=== PATIENT | male | born 1970 | race Caucasian/White ===

== ENCOUNTER → 2018-11-18 06:56 | Day surgery (SDC) | payer SELFPAY ==
[~2018-11-18 06:56] MED LIST: Bacitracin OINTMENT* 0.5% 0.5 oz TUBE ONE; Buffered Lidocaine 1% SYRIN* 1 ML/SYRINGE INTRADERM ONE; Bupivacaine 0.25% SDV PF* 10 ML VIAL INJ ONE; Dexamethasone IV* 4 MG/ML 1 ML (4 MG) ONE; HYDROmorphone INJ1* 1 MG/ML SYRINGE IV PRN; Lactated Ringers 1000 ML Bag* 1,000 ML IV SCH; Lidocaine 2.5%/Prilocain 2.5%* 5 GM TUBE ONE; Methylene Blue 0.5 %* 50 MG/10 ML AMP IV ONE; Midazolam* 1 MG/ML 5 ML VIAL (5 MG) ONE; Naloxone* 0.4 MG/ML 1 ML VIAL IV PRN; Neostigmine Methylsulfate* 3 MG/3 ML SYRINGE ONE; Ondansetron INJ* 2 MG/ML VIAL IV PRN; Ondansetron INJ* 2 MG/ML VIAL ONE; Propofol* 10 MG/ML 20 ML BTL ONE; Rocuronium* 10 MG/ML VIAL ONE; ceFAZolin 2 GM in NS PREMIX(*) 2 GM/100 ML BAG IVPB ONE; fentaNYL* 50 MCG/ML 2 ML VIAL (100 MCG VIAL) ONE; hydrALAZINE IV* 20 MG/ML VIAL ONE; oxyCODONE TAB* 5 MG TAB ONE
--- NOTE | 2018-11-18 13:39 | BRIEFOPN ---
Brief Operative/Procedure Note - Operation Details Pre-Op Diagnosis: melanoma Right lower back; atypical nevus Left lower back Post-Op Diagnosis: same Procedures: wide excision melanoma Right lower back. re-excision atypical nevus Left lower back. right axillary sentinel lymph node biopsy Surgeon(s)/Proceduralists: Prabhu. Mold Mechanic: VIOLETA Damon Anesthesia: GET Estimated Blood Loss: < 50 ml; IVF: 2000 ml RL Findings: as above; lymphoscintigraphy localized sentinel node to Right axilla Specimen(s)/Culture(s) Description: 1. atypical nevus Left lower back. 2. wide re-excision melanoma Right lower back. 3. Right axillary sentinel lymph node Complications: none
[2018-11-18] MEDS: fentaNYL* 50 MCG/ML 2 ML VIAL (100 MCG VIAL) IV PRN ×4 (15:09→16:34)
[2018-11-18] MEDS: oxyCODONE TAB* 5 MG TAB PO PRN ×2 (15:10→16:38)
[2018-11-18 16:29] VITALS: BP 136/93
--- NOTE | 2018-11-18 22:39 | OP ---
DATE OF OPERATION: 11/18/18 - [facility] DATE OF : 68 SURGEON: Robin Pelletier MD BATTER DEPOSITOR: VIOLETA Saldaña PRE-OP DIAGNOSES: 1. Melanoma, right lower back. 2. Atypical nevus, left lower back. POST-OP DIAGNOSIS: 1. Melanoma, right lower back. 2. Atypical nevus, left lower back. OPERATIVE PROCEDURE: 1. Wide local excision of melanoma, right lower back, with advancement flap closure, 6 x 8 cm. 2. Wide excision of left lower back atypical nevus with layered closure. 3. [facility] node biopsy of right axillary node. INDICATION FOR PROCEDURE: Melanoma risks including, but not limited to bleeding , infection, extremity edema were explained to the patient who seemed to understand, agreed to the procedure, and all questions were answered. DESCRIPTION OF PROCEDURE: In the operating room, in the prone position with the patient was already intubated prior to placing him in prone position, his back was prepped and draped in sterile fashion. Both sides were marked preoperatively and noted. Time-out was performed indicating correct patient, correct procedure. Left lower back was approached first where an atypical nevus was widely excised with margins down to the deep subcutaneous tissue. Wound was irrigated, EBL minimal, hemostasis was intact. Deep layer was closed with 3-0 Vicryl and the skin was closed with 3-0 Monocryl. Glue was applied to the skin. He tolerated the procedure well. Next, attention was turned to the melanoma of the right lower back. 2 cm margins were marked in a circular fashion around this melanoma site. An incision was made in a circular fashion around the site and carried down to the subcutaneous tissue. Margins were marked with a long stitch and towards the lateral aspect. Medium length stitch to the medial aspect and short stitch to the cranial aspect. Bovie cautery was used to take a core of adipose tissue all the way down to the fascia, down to his back. This was a circular excision site 4 cm in diameter. A counter incision was then made from the lateral/ cranial aspect and an advancement flap was performed after subcutaneous tissue was dissected down so that this was mobilized. This triangular piece of tissue/ flap was brought into the wound and sutured in place with 3-0 Vicryl suture creating two separate elliptical defects which were then closed with a deep layer of subcuticular 3-0 Vicryl interrupted sutures and the skin was closed with a running 3-0 nylon suture. The arms of this measured 6 cm x 8 cm for a total of 48 cm2 advancement flap. Antibiotic ointment was applied along the gauze dressing. He tolerated this portion of the procedure well. He was then rolled on to a new OR bed in the supine position and the right arm was gently extended exposing his right axilla. This area was prepped and draped in sterile fashion. Time-out was performed once again indicating correct patient, correct procedure. Prior lymphoscintigraphy revealed a right axillary node. The area was prepped and draped in sterile fashion. The probe was brought in revealing good activity right under the marked area performed by the radiology department. Incision was made, carried down to subcutaneous tissue, and gentle dissection bluntly down into the axilla following the probe, which revealed a firm single node which was excised. This corresponded to the sentinel node by the counts, a 10 second count was performed of the node and then the bed, which showed minimal counts. EBL minimal, hemostasis was intact, deep layer of this was closed with interrupted 3-0 Vicryl, and skin was closed with 3-0 Monocryl. Glue was applied to the skin. He tolerated this part of the procedure well. He was then extubated and taken to the recovery room in stable condition. [id number]/[facility] #: [id number] RALPH
== END | disposition home or self-care (01) ==
LOC: OR 06:56
PROVIDERS: ATTEND Surgery
DX: C43.59 Malignant melanoma of other part of trunk (principal); D22.5 Melanocytic nevi of trunk; J44.9 Chronic obstructive pulmonary disease, unspecified; Z72.0 Tobacco use; J45.909 Unspecified asthma, uncomplicated; E66.01 Morbid (severe) obesity due to excess calories; Z68.38 Body mass index [BMI] 38.0-38.9, adult
CPT/HCPCS: 78195; 88305; 88307; 88341; 88342; A9270-GY; A9541; J0360; J0690; J1100; J2250; J2405; J2704; J2710; J3010; J3490